=== PATIENT | female | born 1940 | race Caucasian/White ===

== ENCOUNTER 2022-01-12 16:22 | Emergency (ER) | payer OTHER ==
[~2022-01-12 16:22] MED LIST: DIOVAN HCT 1601 EACH PO; EFFEXOR XR PO; EFFEXOR XR150 MG PO; FENOFIBRATE145 MG PO; ONDANSETRON ODT4 MG SL; OXYCODONE-ACET1 EAC1 PO; SYNTHROID75 MCG PO; VIT B 12 PO; XARELTO10 MG PO; ZOCOR40 MG PO
[2022-01-12 17:37] LABS: BASOPHIL 0.6 % (0-2); EOSINOPHIL 1.3 % (0-7); HCT 40.6 % (37.0-47.0); HGB 13.8 g/dl (12.5-16.0); LYMPHOCYTE 34.8 % (15-48); MCH 32.3 pg (25.0-31.0); MCV 95.1 fL (78.0-100.0); MONOCYTE 7.7 % (0-12); MPV 10.7 fL (6.0-9.5); NRBC 0; PLT 259 K/uL (150-400); RBC 4.27 M/uL (4.20-5.40); RDW 11.6 % (11.5-14.0); WBC 8.2 K/uL (4.0-10.5)
[2022-01-12 18:09] LABS: BUN/CREAT RATIO (CALC) 33.7 RATIO; CREATININE 0.98 mg/dL (0.51-0.95); POTASSIUM 3.9 mmol/L (3.5-5.1)
== END 2022-01-12 18:30 | disposition home or self-care (01) ==
LOC: FER 16:22
PROVIDERS: Nurse Practitioner Family
DX: S13.4XXA Sprain of ligaments of cervical spine, initial encounter (principal); S00.83XA Contusion of other part of head, initial encounter; Z88.0 Allergy status to penicillin; Z88.8 Allergy status to other drugs, medicaments and biological substances; W19.XXXA Unspecified fall, initial encounter; Y92.009 Unspecified place in unspecified non-institutional (private) residence as the place of occurrence of the external cause
CPT/HCPCS: 36415; 70450; 72125; 80048; 85025